=== PATIENT | male | born 1980 | race Two or more races ===

== ENCOUNTER 2019-03-16 19:49 | Emergency (ER) | payer SELFPAY ==
[~2019-03-16] VITALS: Ht 185.4 cm; Wt 98.9 kg
--- NOTE | 2019-03-16 19:54 | NUR ---
CALLED PATIENT, NOT IN WAITING ROOM.
--- NOTE | 2019-03-16 20:00 | NUR ---
PT BIBSELF C/O UNWITNESSED SEIZURE TODAY. PT STATES HE NORMALLY TAKES DILANTIN AND KEPPRA, MISSED DOSED X3 DAYS AGO. PT AAOX4. RESPIRATIONS EVEN AND UNLABORED. SKIN WARM AND INTACT. NO ACUTE DISTRESS NOTED AT THIS TIME. SEIZURE PRECAUTIONS INITIATED
[2019-03-16] MEDS ORDERED: LEVETIRACETAM (500MG) 500 MG/5 ML VIAL IV ONE ×2 (20:14→20:17)
[2019-03-16] MEDS ORDERED: PHENYTOIN EXTENDED RELEASE 100 MG CAPSULE PO ONE ×2 (20:14→20:30)
[2019-03-16] MEDS ORDERED: LEVETIRACETAM (500MG) 1,000 MG in IV NS 0.9% 100 ML IV SCH (20:30)
[2019-03-16] MEDS ORDERED: IV NS 0.9% 500 ML BAG IV ONE (20:30)
--- NOTE | 2019-03-16 21:40 | NUR ---
Patient discharged to home in stable condition. Written and verbal after care instructions given. Patient verbalizes understanding of instruction. IV removed. Catheter intact and site benign. Pressure and 4x4 applied to site. No bleeding noted. Pt ambulatory with a steady gait
[2019-03-16 21:41] VITALS: BP 124/68
== END 2019-03-16 21:42 | disposition home or self-care (01) ==
LOC: ER 19:56
DX: R56.9 Unspecified convulsions (principal); F32.9 Major depressive disorder, single episode, unspecified; F41.9 Anxiety disorder, unspecified; Z98.890 Other specified postprocedural states
CPT/HCPCS: 96365; 99283; J1953 ×2; J7030 ×2; J7040